=== PATIENT | male | born 2000 | race Caucasian/White ===

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

== ENCOUNTER 2024-08-30 14:35 | Emergency (ER) | payer OTHER, SELFPAY ==
[2024-08-30 14:39] VITALS: BP 131/89; PULSE 68; RESP 16; TEMP 36.4; O2SAT 99; BMI 27.3
--- NOTE | 2024-08-30 15:57 | PC.NURSE ---
Patient reports feeling nauseated and having a left eye headache, body temperature control problems and dizziness that started around 1330 today. States that he was drinking yesterday.
[2024-08-30] MEDS: IBUPROFEN 400 MG TABLET 800 MG PO (16:11)
[2024-08-30] MEDS: ONDANSETRON 4 MG ODT SL (16:11)
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
[2024-08-30 17:12] VITALS: BP 114/60; PULSE 61; RESP 18; O2SAT 97
== END 2024-08-30 17:16 | disposition home or self-care (01) ==
PROVIDERS: Emergency Provider Student in an Organized Health Care Education/Training Program; PCP Pediatrics
DX: R51.9 Headache, unspecified (principal); R42 Dizziness and giddiness; R11.0 Nausea
CPT/HCPCS: 99283